=== PATIENT | male | born 1985 | race Caucasian/White ===

== ENCOUNTER 2023-07-20 15:34 | Emergency (ER) | payer OTHER, SELFPAY ==
[2023-07-20 15:39] VITALS: BP 134/90; PULSE 92; RESP 18; TEMP 36.6; O2SAT 100; BMI 25.8
--- NOTE | 2023-07-20 15:45 | XR_ITS ---
The [address] [address] Patient Name: YASMANI CAMILO MRN: [id number] date: 1985 Sex: M Assigned Patient Location: ER Current Patient Location: ER Accession/Order Number: [id number] Exam Date: 07/20/2023 15:58 Report Date: 07/20/2023 16:21 At the request of: GERMAIN STEWART Procedure: XR finger RT min 2V IMAGES REVIEWED: XR finger RT min 2V COMPARISON: None available. CLINICAL INDICATION: finger laceration FINDINGS/IMPRESSION: No radiopaque foreign bodies in the soft tissues of the right third digit. No evidence of acute osseous abnormality. Electronically authenticated by: GRIFFIN GRANADOS Date: 07/20/2023 16:21
--- NOTE | 2023-07-20 15:46 | ED.WOUNDLAC1 ---
HPI - Wound/Laceration General Chief Complaint: Wound/Laceration Stated Complaint: laceration Time Seen by Provider: 07/20/23 15:35 Source: patient Mode of arrival: walk-in Limitations: no limitations History of Present Illness HPI narrative: Patient is a 37-year-old male who presents to the emergency department for the evaluation of a laceration that occurred approximately 8 to 9 hours ago at home while using a pocket knife. Patient sustained a skin avulsion to the fat pad of the right middle finger. Unknown last tetanus. He states the area continues to bleed which is why he came to the ER. He had no other associated injuries. Related Data Allergies Allergy/AdvReac Type Severity Reaction Status Date / Time No Known Drug Allergies Allergy Verified 07/20/23 15:38 Review of Systems ROS Constitutional Denies: fever or chills Ears, nose, mouth, and throat Denies: throat pain Cardiovascular Denies: chest pain Respiratory Denies: shortness of breath Gastrointestinal Denies: nausea or vomiting Musculoskeletal Denies: back pain Integumentary/Breast Denies: rash Neurological Denies: headache Exam Narrative Exam Narrative: Gen.: Awake, alert, in no distress Head: Normocephalic, atraumatic ENT: Moist mucous membranes Respiratory: No respiratory distress Extremities: Moves extremities equally, 1 cm skin avulsion noted from the distal tip of the right middle finger fat pad, no bony exposure. Minimal venous bleeding. Psych: Normal mood and affect Neuro: No focal neuro deficit Skin: Warm, dry Constitutional Vital Signs, click to edit/add: Last Vital Signs Temp 98 F 07/20/23 15:39 Pulse 92 H 07/20/23 15:39 Resp 18 07/20/23 15:39 BP 134/90 07/20/23 15:39 Pulse Ox 100 07/20/23 15:39 O2 Del Method Room Air 07/20/23 15:39 Course Vital Signs Vital signs: Vital Signs Temperature 98 F 07/20/23 15:39 Pulse Rate 92 H 07/20/23 15:39 Respiratory Rate 18 07/20/23 15:39 Blood Pressure 134/90 07/20/23 15:39 Pulse Oximetry 100 07/20/23 15:39 Oxygen Delivery Method Room Air 07/20/23 15:39 Temperature 98 F 07/20/23 15:39 Pulse Rate 92 H 07/20/23 15:39 Respiratory Rate 18 07/20/23 15:39 Blood Pressure 134/90 07/20/23 15:39 Pulse Oximetry 100 07/20/23 15:39 Oxygen Delivery Method Room Air 07/20/23 15:39 MDM - Wound/Laceration MDM Narrative Medical decision making narrative: No indication for suture repair, Gelfoam used with sterile dressing and finger splint to apply pressure and stop bleeding in the fingertip. The area was cleansed. X-rays with no evidence of bony exposure or involvement. Wound care instructions given for home. Follow-up PCP and return to the ER if symptoms change or worsen. Tetanus updated in the ER Medical Records Attestation: I reviewed the patient's medical records. Imaging Data XR finger: Attestation: I have reviewed the pertinent imaging results. Discharge Plan Discharge Chief Complaint: Wound/Laceration Clinical Impression: Avulsion of skin Patient Disposition: Home, Self-Care Time of Disposition Decision: 16:39 Condition: Good Instructions: Skin Avulsion (ED) Stand Alone Forms: Portal Instructions Referrals: Physician,Non-Staff, MD [Primary Care Provider] - 1 week
[2023-07-20] MEDS: SURGIFOAM GEL SPONGE SIZE 100 1 EACH TOPICAL (16:29)
[2023-07-20] MEDS: ADACEL DIPH,PERTUSS(ACELL),TET VAC/PF 0.5 ML ADULT SYRINGE IM (16:30)
--- NOTE | 2023-07-20 17:15 | PC.NURSE ---
this RN assisted PA with dressing pt's R middle finger.
== END 2023-07-20 16:44 | disposition home or self-care (01) ==
PROVIDERS: Emergency Provider Emergency Medicine
DX: S61.212A Laceration without foreign body of right middle finger without damage to nail, initial encounter (principal); Z23 Encounter for immunization; W26.0XXA Contact with knife, initial encounter
CPT/HCPCS: 29130; 73140; 90471; 90715; 99284